=== PATIENT | female | born 1935 | race African-American/Black ===

== ENCOUNTER 2018-04-28 15:25 | Emergency (ER) | payer MEDICAID, OTHER ==
[~2018-04-28] VITALS: Ht 162.6 cm; Wt 65.0 kg
[~2018-04-28 15:25] MED LIST: AMLO2.5T2 PO; CLOP75TA16 PO; LEVE1000 PO; LOVA40TA73 PO; MICRO10 PO; P EP PO; PRED1TAB PO
[2018-04-28] MEDS ORDERED: SODIUM CHLORIDE 0.9% 1,000 ML IV ONE (16:26)
[2018-04-28] MEDS ORDERED: LEVETIRACETAM 1000MG/100ML 100 ML IV ONE (16:30)
[2018-04-28 18:00] LABS: BASOPHILS % 0.5 % (0.0-2.0); EOSINOPHILS % 0.9 % (0.0-5.0); HEMATOCRIT. 38.1 % (36.0-48.0); HEMOGLOBIN. 12.2 g/dL (12.0-16.0); MEAN CORPUSCULAR HEMOGLOBIN 28.9 pg (28.0-32.0); MEAN CORPUSCULAR VOLUME 90.5 fL (81.0-99.0); MEAN PLATELET VOLUME 9.4 fl (7.4-10.4); MONOCYTES % 5.6 % (2.0-8.0); PLATELET 209 x1000/uL (130-400); RED BLOOD CELL COUNT 4.21 mill/uL (4.2-5.4); RED CELL DISTRIBUTION WIDTH 13.6 % (11.6-14.6)
[2018-04-28 18:04] LABS: CHLORIDE 106 mEq/L (98-107)
[2018-04-28 18:13] LABS: CREATINE KINASE 91 IU/L (26-192)
[2018-04-28 18:20] LABS: PROTHROMBIN TIME 10.2 sec (9.1-11.1)
[2018-04-28] MEDS ORDERED: POTASSIUM CHLORIDE 20MEQ TABLET SR PO ONE (18:30)
[2018-04-28 19:33] LABS: CLARITY URINE CLOUDY (CLEAR); COLOR URINE YELLOW (YELLOW); KETONES URINE NEGATIVE (NEGATIVE); LEUKOCYTE ESTERASE URINE 3+ (NEGATIVE); NITRITE URINE NEGATIVE (NEGATIVE); OCCULT BLOOD URINE NEGATIVE (NEGATIVE); PROTEIN URINE NEGATIVE (NEGATIVE); SPECIFIC GRAVITY URINE 1.004 (1.005-1.030); UROBILINOGEN URINE 0.2 E.U./dL (0.2-1.0)
[2018-04-28] MEDS: CEFTRIAXONE 1 G PREMIX 50 ML IV ONE ×2 (21:00→22:00)
[2018-04-28 21:34] VITALS: BP 167/97
== END 2018-04-28 22:15 | disposition short-term general hospital (02) ==
LOC: ER 15:25 → CANBEDREQ 22:28
DX: G40.909 Epilepsy, unspecified, not intractable, without status epilepticus (principal); N39.0 Urinary tract infection, site not specified; E87.6 Hypokalemia; I10 Essential (primary) hypertension; F03.90 Unspecified dementia, unspecified severity, without behavioral disturbance, psychotic disturbance, mood disturbance, and anxiety
CPT/HCPCS: 36415; 70450; 80053; 81003; 82550; 83735; 85025; 85610; 85730; 87040; 87077; 87086; 87186; 96365; 96367; 99285; J0696; J1953; J7030

== ENCOUNTER 2018-06-22 18:13 | Emergency (ER) | payer OTHER ==
[~2018-06-22] VITALS: Ht 167.6 cm; Wt 77.0 kg
[2018-06-22] MEDS ORDERED: ACETAMINOPHEN 325MG TABLET PO ONE (19:45)
[2018-06-22 21:20] VITALS: BP 109/58
== END 2018-06-22 22:53 | disposition home or self-care (01) ==
LOC: ER 18:13
DX: S80.02XA Contusion of left knee, initial encounter (principal); I10 Essential (primary) hypertension; G40.909 Epilepsy, unspecified, not intractable, without status epilepticus; W06.XXXA Fall from bed, initial encounter; Y93.89 Activity, other specified; Y92.013 Bedroom of single-family (private) house as the place of occurrence of the external cause
CPT/HCPCS: 73502; 73552; 73562; 99283

== ENCOUNTER 2018-06-23 20:03 | Emergency (ER) | payer OTHER ==
[~2018-06-23] VITALS: Ht 167.6 cm; Wt 54.0 kg
[2018-06-23] MEDS ORDERED: SODIUM CHLORIDE 0.9% 500 ML IV ONE (20:57)
[2018-06-23] MEDS ORDERED: LEVETIRACETAM 500MG PREMIX 100 ML IV ONE (21:45)
[2018-06-23 22:57] LABS: CLARITY URINE TURBID (CLEAR); COLOR URINE DARK YELLOW (YELLOW); KETONES URINE NEGATIVE (NEGATIVE); LEUKOCYTE ESTERASE URINE 3+ (NEGATIVE); NITRITE URINE NEGATIVE (NEGATIVE); OCCULT BLOOD URINE 2+ (NEGATIVE); PROTEIN URINE 2+ (NEGATIVE); SPECIFIC GRAVITY URINE 1.017 (1.005-1.030)
[2018-06-23] MEDS ORDERED: LEVOFLOXACIN 750MG PREMIX 150 ML IV ONE (23:15)
[2018-06-23] MEDS ORDERED: SODIUM CHLORIDE 0.9% 1,000 ML IV ONE (23:15)
[2018-06-23 23:27] LABS: HEMATOCRIT. 34.4 % (36.0-48.0); HEMOGLOBIN. 11.4 g/dL (12.0-16.0); MEAN CORPUSCULAR HEMOGLOBIN 29.3 pg (28.0-32.0); MEAN CORPUSCULAR VOLUME 88.6 fL (81.0-99.0); PLATELET 222 x1000/uL (130-400); RED BLOOD CELL COUNT 3.89 mill/uL (4.2-5.4)
[2018-06-23 23:33] LABS: CHLORIDE 103 mEq/L (98-107)
[2018-06-23 23:42] LABS: CREATINE KINASE 520 IU/L (26-192)
[2018-06-24 00:33] LABS: PLATELET ESTIMATE NORMAL
[2018-06-24] MEDS: VANCOMYCIN 1 G PREMIX 200 ML IV SCH ×2 (01:06→01:21)
[2018-06-24 02:03] VITALS: BP 143/72
== END 2018-06-24 02:29 | disposition short-term general hospital (02) ==
LOC: ER 20:03 → CANBEDREQ 06-24 05:09
DX: G93.40 Encephalopathy, unspecified (principal); N30.00 Acute cystitis without hematuria; I95.9 Hypotension, unspecified; M62.82 Rhabdomyolysis; E11.9 Type 2 diabetes mellitus without complications; I10 Essential (primary) hypertension; Z88.0 Allergy status to penicillin; Z79.899 Other long term (current) drug therapy
CPT/HCPCS: 36415; 51702; 70450; 71045; 80053; 81003; 82550; 82553; 82962; 83605; 83690; 83880; 84145; 84443; 84484; 85025; 85610; 87040; 87077; 87086; 87186; 93005; 96365; 96367; 99291; J1953; J1956; J3370; J7030; J7040

== ENCOUNTER 2021-10-20 12:33 | Emergency (ER) | payer OTHER ==
[~2021-10-20] VITALS: Ht 162.6 cm; Wt 50.0 kg
[~2021-10-20 12:33] MED LIST changes: +CLOP-31 PO; -CLOP75TA16 PO
[2021-10-20] MEDS ORDERED: SODIUM CHLORIDE 0.9% 1,000 ML IV ONE (13:00)
[2021-10-20 15:18] LABS: BASOPHILS % 0.4 % (0.0-2.0); EOSINOPHILS % 0.7 % (0.0-5.0); HEMATOCRIT. 38.3 % (36.0-48.0); HEMOGLOBIN. 12.5 g/dL (12.0-16.0); LYMPHOCYTES % 18.3 % (20.0-50.0); MEAN CORPUSCULAR HEMOGLOBIN 29.5 pg (28.0-32.0); MEAN CORPUSCULAR VOLUME 90.6 fL (81.0-99.0); MONOCYTES % 3.6 % (2.0-8.0); PLATELET 200 x1000/uL (130-400); RED BLOOD CELL COUNT 4.23 mill/uL (4.2-5.4); RED CELL DISTRIBUTION WIDTH 15.1 % (11.6-14.6)
[2021-10-20 15:19] LABS: CHLORIDE 106 mEq/L (98-107)
[2021-10-20] MEDS ORDERED: LEVETIRACETAM 500MG PREMIX 100 ML IV SCH (15:45)
[2021-10-20 16:49] LABS: CLARITY URINE CLEAR (CLEAR); COLOR URINE DARK YELLOW (YELLOW); KETONES URINE TRACE (NEGATIVE); LEUKOCYTE ESTERASE URINE TRACE (NEGATIVE); NITRITE URINE NEGATIVE (NEGATIVE); OCCULT BLOOD URINE NEGATIVE (NEGATIVE); PROTEIN URINE 1+ (NEGATIVE); SPECIFIC GRAVITY URINE 1.017 (1.005-1.030)
[2021-10-20] MEDS ORDERED: HYDRALAZINE 20MG/ML VIAL IV ONE (19:00)
[2021-10-20 21:37] VITALS: BP 159/85
== END 2021-10-20 23:06 | disposition short-term general hospital (02) ==
LOC: ER 12:33
DX: R55 Syncope and collapse (principal); R53.1 Weakness; Z20.822 Contact with and (suspected) exposure to COVID-19; R53.83 Other fatigue; I10 Essential (primary) hypertension; G40.909 Epilepsy, unspecified, not intractable, without status epilepticus; E11.9 Type 2 diabetes mellitus without complications; Z79.899 Other long term (current) drug therapy
CPT/HCPCS: 36415; 70450; 71045; 80053; 81003; 83605; 83880; 84145; 84484; 85025; 87040; 87086; 87426; 93005; 96365; 96375; 99285; C9803; J0360; J1953; J7030